=== PATIENT | female | born 1985 | race Caucasian/White ===

== ENCOUNTER 2021-04-24 11:43 | Inpatient (IN) | payer OTHER ==
[2021-04-24 12:00] VITALS: BMI 27.6
[2021-04-24 13:41] LABS: Hemoglobin 10.7 g/dL (12.0-15.5); Mean Corpuscular HGB CONC 32.3 g/dL (32.0-36.0); Mean Corpuscular Hemoglobin 28.3 pg (27.0-33.0); Mean Corpuscular Volume 87.6 fl (81.6-98.3); Platelet Count 555 10x3/uL (150-450); RBC Distribution Width 16.4 % (11.5-14.5); Red Blood Cell (RBC) Count 3.78 10x6/uL (3.90-5.03); White Blood Cell (WBC) Count 15.3 10x3/uL (3.5-10.5)
[2021-04-24 13:45] LABS: ALT (SGPT) 214 U/L (8-55); AST (SGOT) 130 U/L (5-34); Albumin 3.2 g/dL (3.5-5.0); Alkaline Phosphatase 337 U/L (40-110); Anion Gap 15 mmol/L (10-20); BUN (Urea Nitrogen) 14 mg/dL (7.0-18.7); Bilirubin, Total 0.3 mg/dL (0.2-1.2); Calc. Creatinine Clearance 102 mL/min (70-130); Calcium 9.1 mg/dL (7.8-10.44); Carbon Dioxide 14 mmol/L (22-29); Chloride 111 mmol/L (98-107); Globulin 3.6 g/dL (2.4-3.5); Glucose 68 mg/dL (70-105); Potassium 4.8 mmol/L (3.5-5.1); Protein, Total 6.8 g/dL (6.0-8.3); Sodium 135 mmol/L (136-145)
[2021-04-24] MEDS ORDERED: Magnesium Sulfate 20 gm/500 ml 20 GM/500 ML BAG ONE (13:57)
[2021-04-24] MEDS ORDERED: hydrALAZINE 20 MG/ML VIAL SLOW IVP PRN (14:00)
[2021-04-24] MEDS ORDERED: Butorphanol Tartrate 1 MG/ML VIAL SLOW IVP PRN (14:00)
[2021-04-24] MEDS ORDERED: Magnesium Sulfate 20 gm/500 ml 20 GM/500 ML BAG IVPB SCH (14:00)
[2021-04-24] MEDS ORDERED: Lactated Ringer's 1,000 ML IV SCH (14:00)
[2021-04-24] MEDS ORDERED: Misoprostol 200 MCG TAB PR PRN (14:00)
[2021-04-24] MEDS ORDERED: NS w/ Oxytocin 30 units 500 ML IV SCH ×2 (14:00)
[2021-04-24] MEDS ORDERED: Penicillin G Potassium 5 MILL.UNITS in Sodium Chloride 0.9% 100 ML IVPB SCH (14:00)
[2021-04-24] MEDS ORDERED: Lidocaine 1% (PF) 30 ML VIAL SC PRN (14:00)
[2021-04-24] MEDS ORDERED: Ondansetron PF 4 MG/2 ML Vial IVP PRN ×2 (14:00→19:06)
[2021-04-24] MEDS ORDERED: Ibuprofen 800 MG TAB PO PRN (14:00)
[2021-04-24] MEDS ORDERED: Acetaminophen 500 MG TAB PO PRN (14:00)
[2021-04-24] MEDS ORDERED: Calcium Gluc 4.6 MEQ/10 ML (100 MG/ML) SLOW IVP PRN (14:00)
[2021-04-24] MEDS ORDERED: Carboprost 250 MCG/ML AMP IM PRN (14:00)
[2021-04-24] MEDS ORDERED: Promethazine HCl 25 MG/ML VIAL IM PRN ×2 (14:00→19:06)
[2021-04-24] MEDS ORDERED: HYDROcodone/Acetaminophen 5/325 mg Tablet PO PRN (14:00)
[2021-04-24] MEDS ORDERED: Diphenoxylate HCl/Atropine Tablet PO PRN (14:00)
[2021-04-24] MEDS ORDERED: NS w/ Oxytocin 30 units 500 ML IVPB SCH (14:00)
[2021-04-24] MEDS ORDERED: Magnesium Sulfate 20 GM/WATER 500 ML BAG IVPB SCH (14:00)
[2021-04-24 14:04] LABS: Creatinine, Urine 53.62 mg/dL (47-110)
[2021-04-24] MEDS ORDERED: Betamet Acet/Betamet Na Ph 30 MG/5 ML VIAL ONE (14:06)
[2021-04-24 16:15] LABS: SARS-CoV-2 NAA Rapid Test Not Detected (NotDetected)
[2021-04-24] MEDS ORDERED: Betamet Acet/Betamet Na Ph 30 MG/5 ML VIAL IM SCH (16:15)
[2021-04-24 16:57] LABS: Amphetamine Not Detected (NotDetected); Barbiturates Screen Not Detected (NotDetected); Benzodiazepine Screen Not Detected (NotDetected); Cocaine Metabolite Screen Not Detected (NotDetected); Methadone Not Detected (NotDetected); Methamphetamine Not Detected (NotDetected); Opiate Screen Detected (NotDetected); Oxycodone Screen Not Detected (NotDetected); Phencyclidine (PCP) Not Detected (NotDetected); THC/Cannabinoid Screen Not Detected (NotDetected); Tricyclic Screen Not Detected (NotDetected)
[2021-04-24 17:11] LABS: Syphilis Antibody Nonreactive (Nonreactive); Syphilis Antibody Index 0.05 S/CO (<1.00 Non-Reactive)
[2021-04-24 17:13] LABS: Hep B Surf Ag Non-Reactive S/CO (NonReactive)
[2021-04-24 17:14] LABS: HBSAg Index 0.18 S/CO (0-0.99)
[2021-04-24] MEDS ORDERED: Labetalol HCl 100 MG/20 ML VIAL ONE (18:12)
[2021-04-24] MEDS ORDERED: Labetalol HCl 100 MG/20 ML VIAL SLOW IVP PRN (18:20)
[2021-04-24] MEDS ORDERED: hydrALAZINE 20 MG/ML VIAL SLOW IVP SCH (18:30)
[2021-04-24] MEDS ORDERED: Fentanyl 2 mcg/Bup 0.1% Cadd 100 ML ONE (18:31)
[2021-04-24] MEDS ORDERED: Acetaminophen 325 MG TAB PO PRN (19:06)
[2021-04-24] MEDS ORDERED: Hydrocerin (Eucerin) Cream 120 gm Jar TOP PRN (19:06)
[2021-04-24] MEDS ORDERED: ePHEDrine Sulfate 50 MG/10 ML VIAL SLOW IVP PRN (19:06)
[2021-04-24] MEDS ORDERED: Lactated Ringer's 500 ML IV PRN (19:06)
[2021-04-24] MEDS ORDERED: Naloxone HCl 0.4 mg/ml Vial IVP PRN ×2 (19:06)
[2021-04-24] MEDS ORDERED: diphenhydrAMINE 50 MG/ML VIAL IVP PRN (19:06)
[2021-04-24] MEDS ORDERED: Communication Order-Pharmacy FS SCH (19:15)
[2021-04-24] MEDS ORDERED: Fentanyl 2 mcg/Bupivacaine 0.1% Cassette 100 ML EPIDURAL SCH (19:15)
[2021-04-24] MEDS: Penicillin G 2.5 MILL.units 2.5 MILL.UNITS in Premix Bag 1 BAG IVPB SCH (20:26)
[2021-04-24] MEDS ORDERED: CEFAZOLIN 1 GM VIAL ONE (22:40)
[2021-04-24] MEDS ORDERED: Azithromycin 500 MG VIAL ONE (22:41)
[2021-04-24] MEDS ORDERED: Carboprost 250 MCG/ML AMP ONE (22:41)
[2021-04-24] MEDS ORDERED: Misoprostol 200 MCG TAB ONE (22:42)
[2021-04-24] MEDS ORDERED: PHENYLEPHRINE-NS 100 MCG/ML 10 ML SYRINGE ONE (23:24)
[2021-04-24] MEDS ORDERED: PROPOFOL 20 ML ONE (23:24)
[2021-04-24] MEDS ORDERED: Oxytocin 10 UNITS/ML VIAL ONE ×2 (23:24→23:57)
[2021-04-24] MEDS ORDERED: Fentanyl 100 MCG/2 ML VIAL ONE (23:24)
[2021-04-24] MEDS ORDERED: Succinylcholine 200 MG/10 ml SYRINGE FS ONE (23:27)
[2021-04-24] MEDS ORDERED: Dexamethasone 4 mg/ml Vial ONE (23:43)
[2021-04-24] MEDS ORDERED: Ondansetron PF 4 MG/2 ML Vial ONE (23:43)
[2021-04-24] MEDS ORDERED: Metoclopramide HCl 10 MG/2 ML VIAL ONE (23:43)
[2021-04-25] MEDS ORDERED: Midazolam HCl 2 mg/2 ml Vial ONE ×2 (00:11→00:13)
[2021-04-25] MEDS ORDERED: Ondansetron HCl/PF 4 MG/2 ML Vial IVP PRN (00:26)
[2021-04-25] MEDS ORDERED: Ondansetron PF 4 MG/2 ML Vial IVP PRN (00:26)
[2021-04-25] MEDS ORDERED: diphenhydrAMINE 50 MG/ML VIAL IVP PRN (00:26)
[2021-04-25] MEDS ORDERED: Meperidine HCl/PF 25 MG/ML VIAL SLOW IVP PRN (00:26)
[2021-04-25] MEDS ORDERED: Morphine 4 MG/ML VIAL SLOW IVP PRN (00:26)
[2021-04-25] MEDS ORDERED: Promethazine HCl 25 MG/ML VIAL IM PRN ×2 (00:26→23:30)
[2021-04-25] MEDS ORDERED: Fentanyl 100 MCG/2 ML VIAL SLOW IVP PRN (00:26)
[2021-04-25] MEDS ORDERED: diphenhydrAMINE 25 MG CAP PO PRN ×3 (00:26→23:30)
[2021-04-25] MEDS ORDERED: Zolpidem Tartrate 5 MG TAB PO PRN (00:26)
[2021-04-25] MEDS ORDERED: Morphine CADD 1 MG/ML CADD IVPB PRN (00:26)
[2021-04-25] MEDS ORDERED: Naloxone HCl 0.4 mg/ml Vial IV PRN (00:26)
[2021-04-25] MEDS ORDERED: diphenhydrAMINE 50 MG/ML VIAL IM PRN (00:26)
[2021-04-25] MEDS ORDERED: Ketorolac Tromethamine 30 MG/ML VIAL IVP SCH (00:30)
[2021-04-25] MEDS ORDERED: Communication Order-Pharmacy FS SCH (00:30)
[2021-04-25] MEDS ORDERED: Morphine 50 MG in Sodium Chloride 0.9% 45 ML IVPB SCH (01:45)
[2021-04-25] MEDS ORDERED: Ibuprofen 800 MG TAB PO PRN (02:27)
[2021-04-25] MEDS ORDERED: Simethicone Chewable 80 MG TAB PO PRN ×2 (03:40→23:30)
[2021-04-25] MEDS ORDERED: Lanolin Ointment 7 GM TUBE TOP PRN ×2 (03:40→23:30)
[2021-04-25] MEDS ORDERED: Calcium Gluconate 4.6 MEQ in Sodium Chloride 0.9% 100 ML IVPB PRN (03:40)
[2021-04-25] MEDS ORDERED: Magnesium Sulfate 20 gm/500 ml 20 GM/500 ML BAG IVPB SCH (03:40)
[2021-04-25] MEDS ORDERED: NS w/ Oxytocin 30 units 500 ML IV SCH (03:40)
[2021-04-25] MEDS ORDERED: Labetalol HCl 100 MG/20 ML VIAL SLOW IVP PRN (03:40)
[2021-04-25] MEDS ORDERED: HYDROcodone/Acetaminophen 5/325 mg Tablet PO PRN (03:40)
[2021-04-25] MEDS ORDERED: Bisacodyl 10 MG SUPP PR PRN ×2 (03:40→23:30)
[2021-04-25] MEDS ORDERED: Boostrix 0.5 ML (Tdap) VIAL IM ONE ×2 (03:40→23:30)
[2021-04-25] MEDS: Misoprostol 100 MCG TAB VAG SCH ×2 (07:48→07:49)
[2021-04-25] MEDS: Ketorolac Tromethamine 30 MG/ML VIAL IVP SCH ×4 (08:07→21:04)
[2021-04-25] MEDS ORDERED: Prenatal Vitamin 1 TAB PO SCH (09:00)
[2021-04-25] MEDS: Docusate Calcium (SURFAK) 240 MG CAP PO SCH ×2 (09:40→21:05)
[2021-04-25] MEDS: Ferrous Sulfate 325 MG TAB PO SCH ×2 (10:49→21:05)
[2021-04-25] MEDS ORDERED: Losartan Potassium 50 MG TAB PO SCH (11:00)
[2021-04-25] MEDS: Ondansetron PF 4 MG/2 ML Vial IVP PRN ×2 (14:40→19:59)
[2021-04-25] MEDS: cloNIDine 0.1 MG TAB PO PRN (16:25)
[2021-04-25] MEDS: Acetaminophen 500 MG TAB PO PRN ×2 (18:16→20:18)
[2021-04-25] MEDS ORDERED: Lidocaine 2% PF 5 ML VIAL ONE (19:36)
[2021-04-25] MEDS ORDERED: Bupivacaine 0.25% HCL 30 ML VIAL ONE (19:36)
[2021-04-25 19:45] LABS: Magnesium 7.7 mg/dL (1.6-2.6)
[2021-04-25] MEDS ORDERED: Acetaminophen 325 MG TAB PO PRN (23:30)
[2021-04-25] MEDS ORDERED: Ondansetron PF 4 MG/2 ML Vial SLOW IVP PRN (23:30)
[2021-04-26] MEDS: Lactated Ringer's 1,000 ML IV SCH ×3 (02:33→13:53)
[2021-04-26] MEDS: Ketorolac Tromethamine 30 MG/ML VIAL IVP SCH (02:34)
[2021-04-26] MEDS: Penicillin G 2.5 MILL.units 2.5 MILL.UNITS in Premix Bag 1 BAG IVPB SCH ×2 (02:35→02:36)
[2021-04-26] MEDS: HYDROcodone/Acetaminophen 5/325 mg Tablet PO PRN ×5 (03:25→23:37)
[2021-04-26] MEDS: Ibuprofen 800 MG TAB PO SCH ×3 (05:28→20:17)
[2021-04-26 05:30] LABS: Hemoglobin 7.7 g/dL (12.0-15.5); Mean Corpuscular Hemoglobin 28.4 pg (27.0-33.0); Mean Platelet Volume 11.3 fl (7.4-10.4); Platelet Count 507 10x3/uL (150-450); RBC Distribution Width 16.4 % (11.5-14.5); Red Blood Cell (RBC) Count 2.71 10x6/uL (3.90-5.03); White Blood Cell (WBC) Count 15.5 10x3/uL (3.5-10.5)
[2021-04-26 05:31] LABS: Magnesium 4.2 mg/dL (1.6-2.6)
[2021-04-26] MEDS ORDERED: Ibuprofen 800 MG TAB PO SCH (06:00)
[2021-04-26] MEDS: Prenatal Vitamin 1 TAB PO SCH (10:43)
[2021-04-26] MEDS: Docusate Calcium (SURFAK) 240 MG CAP PO SCH ×2 (10:43→20:17)
[2021-04-26] MEDS: Losartan Potassium 50 MG TAB PO SCH (12:58)
[2021-04-26] MEDS: Ferrous Sulfate 325 MG TAB PO SCH ×2 (13:52→17:00)
[2021-04-26 14:06] LABS: ALT (SGPT) 185 U/L (8-55); AST (SGOT) 143 U/L (5-34); Albumin 2.7 g/dL (3.5-5.0); Alkaline Phosphatase 244 U/L (40-110); Anion Gap 13 mmol/L (10-20); BUN (Urea Nitrogen) 12 mg/dL (7.0-18.7); Bilirubin, Total 0.2 mg/dL (0.2-1.2); Calc. Creatinine Clearance 109 mL/min (70-130); Calcium 7.5 mg/dL (7.8-10.44); Carbon Dioxide 23 mmol/L (22-29); Chloride 107 mmol/L (98-107); Globulin 2.7 g/dL (2.4-3.5); Glucose 108 mg/dL (70-105); Potassium 4.5 mmol/L (3.5-5.1); Protein, Total 5.4 g/dL (6.0-8.3); Sodium 138 mmol/L (136-145)
[2021-04-26] MEDS: hydrALAZINE 20 MG/ML VIAL SLOW IVP PRN (17:01)
[2021-04-26] MEDS: cloNIDine 0.1 MG TAB PO PRN (20:44)
[2021-04-27] MEDS: cloNIDine 0.1 MG TAB PO PRN ×4 (04:42→19:39)
[2021-04-27] MEDS: HYDROcodone/Acetaminophen 5/325 mg Tablet PO PRN ×6 (04:42→20:08)
[2021-04-27] MEDS: Ibuprofen 800 MG TAB PO SCH ×3 (04:43→21:33)
[2021-04-27] MEDS: Lactated Ringer's 1,000 ML IV SCH ×3 (07:00→15:53)
[2021-04-27] MEDS: Docusate Calcium (SURFAK) 240 MG CAP PO SCH ×2 (07:57→21:33)
[2021-04-27] MEDS: Prenatal Vitamin 1 TAB PO SCH (07:57)
[2021-04-27] MEDS: Ferrous Sulfate 325 MG TAB PO SCH ×2 (07:57→16:01)
[2021-04-27] MEDS: Losartan Potassium 50 MG TAB PO SCH (09:16)
[2021-04-27] MEDS ORDERED: Hydrochlorothiazide 25 MG TAB PO SCH (12:45)
[2021-04-27] MEDS: hydrALAZINE 20 MG/ML VIAL SLOW IVP PRN (12:45)
[2021-04-27] MEDS ORDERED: Losartan 25 MG TAB PO SCH (13:00)
[2021-04-27] MEDS ORDERED: Losartan Potassium 50 MG TAB PO SCH (13:00)
[2021-04-27] MEDS ORDERED: hydrALAZINE 20 MG/ML VIAL SLOW IVP PRN (14:10)
[2021-04-27] MEDS ORDERED: hydrALAZINE 20 MG/ML VIAL ONE (14:17)
[2021-04-28] MEDS: HYDROcodone/Acetaminophen 5/325 mg Tablet PO PRN ×4 (00:16→12:01)
[2021-04-28] MEDS: cloNIDine 0.1 MG TAB PO PRN (04:16)
[2021-04-28] MEDS: Ibuprofen 800 MG TAB PO SCH ×2 (05:11→14:44)
[2021-04-28] MEDS: Lactated Ringer's 1,000 ML IV SCH ×2 (07:21→07:22)
[2021-04-28] MEDS: Docusate Calcium (SURFAK) 240 MG CAP PO SCH (08:03)
[2021-04-28] MEDS: Prenatal Vitamin 1 TAB PO SCH (08:03)
[2021-04-28] MEDS: Ferrous Sulfate 325 MG TAB PO SCH (08:03)
[2021-04-28] MEDS ORDERED: Losartan Potassium 50 MG TAB PO SCH (09:00)
[2021-04-28] MEDS ORDERED: Hydrochlorothiazide 25 MG TAB PO SCH (09:00)
[2021-04-28 11:50] VITALS: TEMP 98.4
[2021-04-28 12:04] VITALS: BP 138/74
== END 2021-04-28 15:10 | disposition home or self-care (01) | DRG 788 ==
LOC: CSHLD 11:43 → CSHPED 04-26 00:31
PROVIDERS: ADMIT Family Medicine; ATTEND Family Medicine
PROC: 10D00Z1 Extraction of Products of Conception, Low, Open Approach (ICD-10-PCS; principal; 2021-04-24)
PROC: 3E0P7VZ Introduction of Hormone into Female Reproductive, Via Natural or Artificial Opening (ICD-10-PCS; 2021-04-24)
PROC: 3E033VJ Introduction of Other Hormone into Peripheral Vein, Percutaneous Approach (ICD-10-PCS; 2021-04-24)
PROC: 10907ZC Drainage of Amniotic Fluid, Therapeutic from Products of Conception, Via Natural or Artificial Opening (ICD-10-PCS; 2021-04-24)
DX: O14.24 HELLP syndrome, complicating childbirth (principal); Z20.822 Contact with and (suspected) exposure to COVID-19; O62.0 Primary inadequate contractions; O61.0 Failed medical induction of labor; Z3A.35 35 weeks gestation of pregnancy; Z37.0 Single live birth
CPT/HCPCS: 36415; 51702; 76815; 76819; 80053; 80306; 82570; 83735; 84156; 85027; 86780; 86850; 86900; 86901; 87340; 88307; 99285; J0360; J0702; J1100; J1885; J2001; J2250; J2270; J2405; J2540; J2590; J2704; J2765; J3010; J3475; J3490; S0020; U0002